=== PATIENT | male | born 1990 | race Caucasian/White ===

== ENCOUNTER 2021-06-17 07:13 | Emergency (ER) | payer MEDICAID, SELFPAY ==
[2021-06-17 07:14] VITALS: BP 137/88; PULSE 97; RESP 14; TEMP 36.2; O2SAT 99; BMI 25.8
--- NOTE | 2021-06-17 07:22 | RAD_ITS ---
STUDY: X-RAY - UNILATERAL RIBS ( LEFT ) WITH CHEST REASON FOR EXAM: Male, 30 years old. Anterior lateral rib pain following a fall. TECHNIQUE - RIBS: 4 view(s) of the ribs. TECHNIQUE - CHEST: Single PA view of the chest. COMPARISON: None. FINDINGS - RIBS: Normal visualized ribs without a demonstrated fracture. FINDINGS - CHEST: The lungs are clear and expanded. There is no demonstrated pleural abnormality. Normal size heart. Normal mediastinum and morro. Normal visualized pulmonary arteries. Normal visualized aortic arch and descending thoracic aorta. Normal visualized thoracic spine. Normal visualized ribs, clavicles, and shoulders. There is no demonstrated abnormality of the visualized soft tissue structures of the upper abdomen. RAD/Ribs Uni Min 3V w/PA Chest IMPRESSION: RIBS: Normal x-ray examination of the ribs. CHEST: Normal x-ray examination of the chest. Electronically Signed: Angel Blum MD at 8:20 EDT ,
--- NOTE | 2021-06-17 07:22 | EX.ED.GENINJ ---
HPI History of Present Illness Chief Complaint: Chest Other Informant: patient Narrative Narrative: 30-year-old male states that yesterday he was carrying some furniture when he tripped and fell. States is not under percent sure what he hit but he knows that he hit the left anterior chest wall. He denies any hemoptysis or hematuria. No abdominal pain. He notes painful range of motion. Denies dyspnea. He denies any other injuries PFSH PFSH Medical History no medical history Home Medications No Known/Unobtainable [No Known Home Medications] 05/28/16 [History Last Taken Unknown] hydrocodone-acetaminophen 1 tab PO Q6H PRN PRN 3 Days #10 tablet 06/17/21 [Rx Last Taken Unknown] Allergy/AdvReac Type Severity Reaction Status Date / Time sulfamethoxazole AdvReac Vomiting Verified 06/17/21 07:15 [From Bactrim] trimethoprim [From Bactrim] AdvReac Vomiting Verified 06/17/21 07:15 Surgical History no surgical history Social History (Updated 06/17/21 @ 07:[address] Ruben Payan, DO) current gender identity: male Smoking Status: Current every day smoker tobacco type: cigarettes ROS ROS ED Constitutional Constitutional ED: Denies chills or weight loss Eyes Eyes: Denies change in vision or diplopia ENT ENT ED: Denies ear pain, rhinorrhea or sore throat Cardiovascular Cardiovascular: Reports chest pain; Denies orthopnea, palpitations or racing heartbeat Respiratory/Chest Respiratory/Chest: Denies cough, dyspnea or orthopnea Gastrointestinal Gastrointestinal: Denies abdominal pain, diarrhea, nausea or vomiting Genitourinary Genitourinary ED: Denies dysuria, hematuria or urinary frequency Musculoskeletal Musculoskeletal: Denies arthralgias or myalgias Integumentary Denies abscess or rash Neurologic Neurologic: Denies headache(s) or weakness Psychiatric Psychiatric: Denies anxiety, depression, suicidal ideation or suicidal thoughts Endocrine Endocrinology: Denies polydipsia, polyphagia or polyuria Allergic/Immunologic Allergic/Immunologic ED: Denies mouth swelling, tongue swelling or urticaria EXAM Physical Exam Const Vital Signs: 06/17/21 07:14 06/17/21 07:20 Temperature 97.2 F L Temperature Source Temporal Pulse Rate 97 Respiratory Rate 14 Respiratory Effort Normal Non-Labored Respiratory Pattern Normal Blood Pressure 137/88 H Blood Pressure Mean 104 Pulse Ox 99 Oxygen Delivery Method Room Air Positive well nourished and well developed General Appearance ED: well developed HEENT Reports normocephalic, head/scalp atraumatic, TM's clear and moist mucous membranes atraumatic Tympanic Membrane ED: Yes TM's clear Eyes PERRL and EOMs intact bilaterally Neck no lymphadenopathy, supple and no JVD Chest Wall Chest Narrative: Tender to palpation over the costochondral border on the left lower anterior chest. No obvious deformity. No ecchymosis seen. Resp normal respiratory effort and clear to auscultation bilaterally Effort and Inspection: pain with movement Cardio regular rate, regular rhythm and no murmurs GI normal to inspection, nondistended, normoactive bowel sounds and non-tender Palpation: soft Back/Spine no CVA tenderness and normal ROM Extremity normal to inspection General Extremety ED: Negative for edema General Extremity: Negative for edema Neuro oriented x3 and CN's II-XII intact bilaterally Sensorium / Orientation: alert Motor Exam: strength 5/5 throughout Psych mental status grossly normal Mood & Affect: Negative for depressed or tearful Skin no rashes or lesions noted and no wounds MDM MDM MDM Narrative Medical decision making narrative: My interpretation of the plain films of the ribs is no acute fracture. No pneumothorax or hemothorax seen. Patient is needing a work note as well as some pain medication. Follow-up as needed return if worsening or concerns Discharge Plan Triage Chief Complaint: Chest Other ED Provider: Ruben Payan Dx/Rx/DC Orders Clinical Impression: Chest wall contusion Instructions: ED Chest Wall Contusion Prescriptions: New hydrocodone-acetaminophen [hydrocodone-acetaminophen] 1 TABLET tablet 1 tab PO Q6H PRN PRN (Reason: Pain) 3 Days Qty: 10 RF: 0 No Action No Known Home Medications RF: 0 Primary Care Provider: Care Physician,No Primary Referrals: Care Physician,No Primary [Primary Care Provider] - Disposition Disposition: Home, Self Care
== END 2021-06-17 08:16 | disposition home or self-care (01) ==
PROVIDERS: Emergency Provider Emergency Medicine; Visit Provider Emergency Medicine
DX: S20.20XA Contusion of thorax, unspecified, initial encounter (principal); F17.210 Nicotine dependence, cigarettes, uncomplicated; W18.49XA Other slipping, tripping and stumbling without falling, initial encounter; Y93.89 Activity, other specified; Y99.9 Unspecified external cause status; Y92.9 Unspecified place or not applicable
CPT/HCPCS: 71101; 99282

== ENCOUNTER 2021-08-08 18:38 | Emergency (ER) | payer MEDICAID, SELFPAY ==
[2021-08-08 18:39] VITALS: BP 134/83; PULSE 90; RESP 14; TEMP 36.7; O2SAT 100; BMI 22.8
--- NOTE | 2021-08-08 18:48 | EX.ED.UPPERE ---
HPI History of Present Illness Chief Complaint: Upper Extremity Injury Detail of Chief Complaint: Pain right shoulder after lifting arm rapidly on Sunday. Informant: patient Occured/Mechanism Comment: No history of direct trauma. Onset/Context/Timing Onset: Days (2 days ago, Sunday, August 06) Context: Sudden Onset Timing: Continuous and Waxes and wanes Quality of Pain: Dull Location: Right shoulder region Current Severity: Mild Maximum Severity: Severe Worsened by: Movement and palpation Relieved by: Rest with right upper extremity abducted and internally rotated Associated Symptoms Associated Symptoms: Negative for Parasthesia, Weakness and Loss of Funtion Narrative Narrative: Patient is a 30-year-old [id number] male who presents to the emergency room because of pain right shoulder when he AB ducted his arm quickly. There is no history of direct trauma. He denies paresthesia, anesthesia medics. He denies prior injury. He thinks it popped out and popped back in. Tetanus Immunization: 5-10 years Prior similar symptoms: No Recent Illness/Hospitalization: No PFSH PFSH Medical History no medical history Home Medications No Known/Unobtainable [No Known Home Medications] 05/28/16 [History Last Taken Unknown] Allergy/AdvReac Type Severity Reaction Status Date / Time sulfamethoxazole AdvReac Vomiting Verified 08/08/21 18:39 [From Bactrim] trimethoprim [From Bactrim] AdvReac Vomiting Verified 08/08/21 18:39 Surgical History no surgical history Social History (Updated 08/08/21 @ 18:[address] Clovis Rivers MD) household members: spouse Smoking Status: Current every day smoker tobacco type: cigarettes substance use type: does not use ROS ROS ED Constitutional Constitutional ED: Denies chills, fever(s), subjective, sweats or weight loss Cardiovascular Cardiovascular: Denies chest pain or palpitations Respiratory/Chest Respiratory/Chest: Denies cough, dyspnea or dyspnea on exertion Neurologic Neurologic: Denies paresthesias or weakness Hematologic/Lymphatic Hematologic/Lymphatic: Denies easy bleeding or easy bruising EXAM Physical Exam Const Vital Signs: 08/08/21 18:39 Temperature 98.1 F Temperature Source Temporal Pulse Rate 90 Respiratory Rate 14 Blood Pressure 134/83 H Blood Pressure Mean 100 Pulse Ox 100 Oxygen Delivery Method Room Air Positive well nourished and well developed General Appearance ED: well developed and NAD; Negative for cyanotic or diaphoretic HEENT HEENT Narrative: Ears normal. Nares patent. Patient has corrective lenses. normocephalic and atraumatic Eyes PERRL and EOMs intact bilaterally Neck full ROM and supple General: tenderness Resp normal respiratory effort and clear to auscultation bilaterally Cardio regular rate, regular rhythm, S1 normal heart sound, S2 normal heart sound and no murmurs Extremity normal to inspection; Negative for full ROM Extremity Narrative: There is pain all patient of the right shoulder region. He also complains of pain to palpation of the clavicle. There is no evidence of trauma to the clavicle. There is no ecchymosis or soft tissue swelling. Able to passively AB duct to 90 degrees. Negative drop test. Patient had pain with further abduction past 90 degrees. The glenoid fossa is not empty. Axillary, median, radial and ulnar function intact. Bicep, brachialis and tricep reflexes are 1+ and symmetric. General Extremety ED: Negative for edema General Extremity: Negative for edema Neuro oriented x3, CN's II-XII intact bilaterally and no focal motor deficits Sensorium / Orientation: alert Motor Exam: strength 5/5 throughout Psych mental status grossly normal Skin Lesions: no lesions Rashes: no rashes Trauma: no lacerations or abrasions MDM MDM MDM Narrative Medical decision making narrative: X-rays obtained to determine if there is any evidence of arthritis, calcification of the supraspinatus tendon or chronic abnormality. Suspect strain of the right shoulder. Radiography Diagnostic Testin views of the right shoulder was obtained and independently interpreted by me at 03/13/2002. The x-ray is normal. There is no evidence of arthritis. The humerus appears normal. The glenoid fossa appears normal. The AC joint appears normal. The clavicle is normal. Discharge Plan Triage Chief Complaint: Upper Extremity Injury ED Provider: Clovis Rivers Dx/Rx/DC Orders Clinical Impression: Acute pain of right shoulder Instructions: ED Shoulder Pain, Uncertain Cause Prescriptions: No Action No Known Home Medications RF: 0 Primary Care Provider: Care Physician,No Primary Referrals: Care Physician,No Primary [Primary Care Provider] - Doctor,Your [STAFF PHYSICIAN] - 3-5 Days if not improving Activity Restrictions/Additional Instructions: The name of your physician is located on your insurance card issued to you by [facility] Apply ice to your shoulder 6-8 times a day. Take 4 Advil tablets every 8 hours for the next 3 to 5 days Disposition Disposition: Home, Self Care
--- NOTE | 2021-08-08 18:50 | RAD_ITS ---
STUDY: XR Shoulder Min 2 Views REASON FOR EXAM: Male, 30 years old. Injury/Pain TECHNIQUE: XR Shoulder Min 2 Views RIGHT COMPARISON: None. FINDINGS: Normal glenohumeral articulation. Normal acromioclavicular joint. Normal acromion. Normal humeral head and visualized proximal humerus. The soft tissue structures are unremarkable. Normal visualized pulmonary apex. RAD/Shoulder min 2 Views IMPRESSION: There are no acute findings of the shoulder. Electronically Signed: Kulwinder Rod MD at 19:23 EDT ,
== END 2021-08-08 19:11 | disposition home or self-care (01) ==
PROVIDERS: Emergency Provider Emergency Medicine; Visit Provider Emergency Medicine
DX: M25.511 Pain in right shoulder (principal); F17.210 Nicotine dependence, cigarettes, uncomplicated
CPT/HCPCS: 73030; 99282